=== PATIENT | male | born 1960 | race Caucasian/White ===

== ENCOUNTER → 2019-02-28 | Outpatient (CLI) | payer BC ==
--- NOTE | 2019-03-03 07:38 | PE ---
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 TECHNIQUE: Following the intravenous administration of 11.77 mCi of F-18 FDG, whole body images are performed from the skull base to the midthigh. Images are reviewed on the computer in the coronal, a xial, and sagittal planes. Reconstructed rotating images are created on independent workstation and reviewed on the computer. A noncontrast CT is performed in conjunction with the PET scan. Dedicated PET/CT imaging of the neck is acquired. SCAN: Initial Scan FINDINGS: SKULL BASE AND NECK: Primary tongue lesion not well visualized, asymmetric left sided soft tissue is noted axial image 49 with some hypermetabolic uptake just superior to this axial image 47 max SUV of 10.36. This likely is area of primary neoplasm. Near same level there is a hypermetabolic 1.8 x 1.1 cm lymph node anterior to carotid and jugular ves sels with max SUV of 12.69 on axial image 44. No additional areas of suspicious hypermetabolic uptake in the neck are identified. CHEST, MEDIASTINUM, AND HILAR REGION: No areas of suspicious hypermetabolic uptake. ABDOMEN AND PELVIS: No areas of suspicious hypermetabolic uptake. OSSEOUS STRUCTURES: No areas of suspicious hypermetabolic uptake. OTHER CT: Mild calcified plaque right carotid bulb. Dependent atelectasis bilateral lower lobes. Coronary artery calcification and/or stents are present. Left-sided parapelvic cysts. Yissel mesentery involving the left abdomen with some prominent but subce ntimeter lymph nodes. Correlate clinically. Incidental normal-appearing appendix in the right lower quadrant. Some diverticula in the sigmoid col on. Prostate gland upper limits of normal in size. IMPRESSION: Primary lesion left tongue base not well seen but felt identified. Adjacent left neck aimee nopathy noted. No metastatic malignancy is identified.
== END | disposition home or self-care (01) ==
LOC: RADPETMAIN 12:57
PROVIDERS: ATTEND Radiology Diagnostic Radiology
DX: R59.0 Localized enlarged lymph nodes (principal); C76.0 Malignant neoplasm of head, face and neck
CPT/HCPCS: 78815; A9552

== ENCOUNTER → 2019-08-08 | Outpatient (CLI) | payer BC ==
--- NOTE | 2019-08-13 15:27 | PE ---
Nuclear medicine PET/CT HISTORY: Head and neck carcinoma, subsequent Patient received 12.5 mCi F-18 intravenously in delayed scanning was performed from skull base to the mid thighs. Localization and attenuation correction CT scan was performed. Small [id number] image s obtained through the head and neck. Correlation to prior nuclear medicine PET/CT 02/28/2019 Head and neck: There is no suspicious hypermetabolic uptake. No evident supraclavicular adenopathy. T he previously identified left-sided adenopathy along the anterior cervical chain shows multiple surgi davis clips present. Fat planes are disrupted likely due to postop changes. No associated hypermetaboli c uptake. CHEST: There is no evident lung mass. No pleural or pericardial effusion. Coronary artery calcificati ons are present. No mediastinal, axillary, hilar adenopathy. There are coronary artery calcifications present. ABDOMEN: Probable parapelvic cysts within the kidneys. No adrenal or liver mass seen. No ascites. No pelvic adenopathy or free fluid. Urinary bladder unremarkable. Osseous structures show no associated hypermetabolic uptake. IMPRESSION: Postop changes. No suspicious hypermetabolic uptake.
== END | disposition home or self-care (01) ==
LOC: RADPETMAIN 10:36
PROVIDERS: ATTEND Radiology Diagnostic Radiology
DX: C76.0 Malignant neoplasm of head, face and neck (principal); Z98.890 Other specified postprocedural states
CPT/HCPCS: 78815; A9552

== ENCOUNTER → 2020-01-01 | Outpatient (CLI) | payer BC ==
[2020-01-01 12:57] LABS: Basophils % (A) 0 %; Eosinophils # (A) 0.1 k/uL (0-0.7); Eosinophils % (A) 2 %; HCT 41.3 % (39.0-53.0); HGB 13.8 gm/dL (13.0-17.5); Lymphocytes # (A) 0.6 k/uL (1.0-4.8); Lymphocytes % (A) 19 %; MCH 31.6 pg (25.0-35.0); MCHC 33.4 g/dL (31.0-37.0); MCV 94.7 fL (80.0-100.0); Mean Platelet Volume 7.4; Monocytes # (A) 0.3 k/uL (0-1.0); Monocytes % (A) 10 %; Neutrophils # (A) 2.2 k/uL (1.3-7.7); Neutrophils % (A) 66 %; Platelet Count 153 k/uL (150-450); RBC 4.36 m/uL (4.30-5.90); RDW 12.6 % (11.5-15.5); WBC 3.3 k/uL (3.8-10.6)
[2020-01-01 13:05] LABS: ALT 19 U/L (4-49); AST 21 U/L (17-59); African American GFR (CKD) >90 (>60 ml/min/1.73 sqM); Albumin 4.6 g/dL (3.5-5.0); Alkaline Phosphatase 46 U/L (38-126); Anion Gap 8 mmol/L; Blood Urea Nitrogen 10 mg/dL (9-20); Calcium 9.3 mg/dL (8.4-10.2); Carbon Dioxide 26 mmol/L (22-30); Chloride 106 mmol/L (98-107); Glucose 95 mg/dL (74-99); Non-African American GFR(CKD) >90 (>60 ml/min/1.73 sqM); Potassium 4.1 mmol/L (3.5-5.1); Sodium 140 mmol/L (137-145); Total Bilirubin 0.9 mg/dL (0.2-1.3); Total Protein 6.9 g/dL (6.3-8.2)
--- NOTE | 2020-01-01 13:08 | CT ---
EXAMINATION TYPE: CT neck chest w con DATE OF EXAM: 01/01/2020 12:52 PM COMPARISON: PET/CT 08/08/2019, PET/CT 02/28/2019 HISTORY: Follow up throat cancer. CT DLP: 1420 mGycm Automated exposure control for dose reduction was used. CONTRAST: CT scan of the neck is performed following with IV Contrast, patient injected with 100 mL of Isovue 3 00. Axial images are obtained, coronal and sagittal reformatted images are reviewed. FINDINGS: HEAD AND NECK: Extensive postsurgical check involving the left neck noted. Hypertrophic and degenerative change of the spine. Craniocervical junction demonstrates low-lying cer ebellar tonsils. Parotid glands are symmetric in appearance. Dental artifact results in a limited ass essment portions of the soft tissues of the neck due to severe artifact. There remains soft tissue fu llness in the region of the surgical bed is similar in appearance to the prior study and therefore gi bethany the absence of metabolic uptake felt to be postsurgical. Nasopharynx and oropharynx symmetric. Base of the tongue is symmetric. Vocal cords demonstrates sligh t asymmetry but may be related to artifact and patient motion correlate clinically. Left vocal cord s lightly more prominent than right. Clinical correlation suggested. This is similar in appearance to t he recent PET scan and therefore likely benign. No other areas of asymmetric fullness or pathologic adenopathy noted. Thyroid appears to be limited i n assessment due to artifact but grossly homogeneous. Mild atherosclerotic change of the carotid bifurcations. CHEST: Lungs are clear. No evidence of consolidation. No pleural effusion or pneumothorax. No sizable pulmonary nodule. Atherosclerotic change aorta. Coronary artery calcification noted. No pathologic adenopathy. Prominent parapelvic cyst is suspected in left renal hilum. IMPRESSION: 1. Asymmetric thickening involving the soft tissues of left neck in the region of the surgical change is stable from the recent PET scan. Given the soft tissue fullness was present on the previous PET s can and no abnormal metabolic uptake finding likely is postsurgical. No suspicious new adenopathy ger ntified. 2. No acute intrathoracic process. There is a 2 mm nodule in the right upper lobe axial image 38 to s mall too characterize. Retrospectively stable from both of the previous PET/CT and likely benign. 3. Coronary artery atherosclerotic disease. Correlate clinically.
== END | disposition home or self-care (01) ==
LOC: RADCTMAIN 12:08
PROVIDERS: ATTEND Internal Medicine Hematology & Oncology
DX: M79.89 Other specified soft tissue disorders (principal); R91.1 Solitary pulmonary nodule; I25.10 Atherosclerotic heart disease of native coronary artery without angina pectoris; C76.0 Malignant neoplasm of head, face and neck; Z98.890 Other specified postprocedural states
CPT/HCPCS: 80053; 85025; 70491; 71260; Q9967

== ENCOUNTER → 2020-05-10 | Outpatient (CLI) | payer BC ==
[2020-05-10 09:46] LABS: Basophils % (A) 1 %; Eosinophils % (A) 1 %; HCT 44.6 % (39.0-53.0); HGB 15.1 gm/dL (13.0-17.5); Lymphocytes # (A) 0.6 k/uL (1.0-4.8); Lymphocytes % (A) 17 %; MCH 32.1 pg (25.0-35.0); MCHC 33.9 g/dL (31.0-37.0); MCV 94.9 fL (80.0-100.0); Monocytes # (A) 0.4 k/uL (0-1.0); Monocytes % (A) 10 %; Neutrophils # (A) 2.5 k/uL (1.3-7.7); Neutrophils % (A) 70 %; Platelet Count 168 k/uL (150-450); RDW 12.5 % (11.5-15.5); WBC 3.6 k/uL (3.8-10.6)
[2020-05-10 09:55] LABS: ALT 37 U/L (4-49); AST 31 U/L (17-59); African American GFR (CKD) >90 (>60 ml/min/1.73 sqM); Albumin 4.7 g/dL (3.5-5.0); Alkaline Phosphatase 54 U/L (38-126); Anion Gap 5 mmol/L; Blood Urea Nitrogen 12 mg/dL (9-20); Calcium 9.3 mg/dL (8.4-10.2); Carbon Dioxide 32 mmol/L (22-30); Chloride 103 mmol/L (98-107); Glucose 86 mg/dL (74-99); Non-African American GFR(CKD) 80 (>60 ml/min/1.73 sqM); Potassium 4.1 mmol/L (3.5-5.1); Sodium 140 mmol/L (137-145); Total Bilirubin 0.6 mg/dL (0.2-1.3); Total Protein 7.3 g/dL (6.3-8.2)
--- NOTE | 2020-05-10 12:40 | CT ---
EXAMINATION TYPE: CT neck chest w con DATE OF EXAM: 05/10/2020 9:14 AM COMPARISON: CT neck and chest 01/01/2020 HISTORY: Head and neck cancer CT DLP: 1552 mGycm Automated exposure control for dose reduction was used. CONTRAST: CT scan of the neck and chest is performed following with IV Contrast, patient injected with 100 ml m L of Isovue 300. Axial images are obtained, coronal and sagittal reformatted images are reviewed. FINDINGS: There are coronary artery calcifications. Airway: No gross abnormality seen. Parotid/submandibular glands: No gross abnormality seen. Carotid/Vascular Structures: Unchanged Osseous Structures: Stable Other: Postop changes are noted along the left neck. Some inflammatory change noted in the left maxil alf sinus. The chest shows stable right lung nodules, no pleural or pericardial effusion. Groundglass focus is v ague and axial image 45 which is not seen definitively on prior exam. There is no mediastinal, axilla ry, or hilar adenopathy. IMPRESSION: There is an indeterminate groundglass density in the left lower lobe measuring only appr oximately 15 mm of questionable clinical significance, follow-up suggested.
== END | disposition home or self-care (01) ==
LOC: RADCTMAIN 08:32
PROVIDERS: ATTEND Internal Medicine Hematology & Oncology
DX: C76.0 Malignant neoplasm of head, face and neck (principal); I10 Essential (primary) hypertension; M12.9 Arthropathy, unspecified; Z71.3 Dietary counseling and surveillance
CPT/HCPCS: 80053; 85025; 70491; 71260; 36415; Q9967

== ENCOUNTER → 2020-06-10 | Outpatient (CLI) | payer BC ==
--- NOTE | 2020-06-10 13:59 | US ---
EXAMINATION TYPE: US carotid duplex BILAT DATE OF EXAM: 06/10/2020 COMPARISON: NONE CLINICAL HISTORY: R09.89 Carotid Bruit. Left carotid bruit; patient stated had left throat surgery la st year for CA with lymph nodes removed. EXAM MEASUREMENTS: RIGHT: Peak Systolic Velocity (PSV) cm/sec ----- Right CCA: 74.8 ----- Right ICA: 82.8 ----- Right ECA: 78.7 ICA/CCA ratio: 1.1 RIGHT: End Diastole cm/sec ----- Right CCA: 2.6 ----- Right ICA: 2.6 ----- Right ECA: 13.8 LEFT: Peak Systolic Velocity (PSV) cm/sec ----- Left CCA: 79.8 ----- Left ICA: 77.6 ----- Left ECA: 90.8 ICA/CCA ratio: 1.0 LEFT: End Diastole cm/sec ----- Left CCA: 22.6 ----- Left ICA: 17.1 ----- Left ECA: 23.7 VERTEBRALS (direction of flow): Right Vertebral: Antegrade Left Vertebral: Antegrade Rhythm: Arrhythmia noted proximal left CCA Irregular intimal wall changes noted right carotid bifurcation, and mild changes noted left carotid b ifurcation, but PSV is wnl bilaterally. IMPRESSION: 1. Irregular atherosclerotic plaque with no significant hemodynamic stenosis. 2. Cardiac dysrhythmia. Criteria for Assigning % of Stenosis / Diameter reduction (Estimation based on the indirect measurements of the internal carotid artery velocities (ICA PSV). 1. Normal (no stenosis)=ICA PSV < 125 cm/s: ratio < 2.0: ICA EDV<40 cm/s. 2. Less than 50% stenosis=ICA PSV < 125 cm/s: ratio < 2.0: ICA EDV<40 cm/s. 3. 50 to 69% stenosis=ICA PSV of 125 to 230 cm/s: ration 2.0 ? 4.0: ICA EDV 40-100 cm/s. 4. Greater than 70% stenosis to near occlusion= ICA PSV > 230 cm/s: ratio > 4.0: ICA EDV > 100 cm/s. 5. Near occlusion= ICA PSV velocities may be low or undetectable: variable ratio and ICA EDV. 6. Total occlusion=unable to detect flow.
== END | disposition home or self-care (01) ==
LOC: RADUSWWP 12:54
PROVIDERS: ATTEND Otolaryngology
DX: I65.23 Occlusion and stenosis of bilateral carotid arteries (principal)
CPT/HCPCS: 93880

== ENCOUNTER → 2020-09-26 | Outpatient (CLI) | payer BC ==
--- NOTE | 2020-09-26 12:04 | CT ---
EXAMINATION TYPE: CT neck chest w con DATE OF EXAM: 09/26/2020 COMPARISON: 05/10/2020 HISTORY: Follow up throat cancer CT DLP: 1589.7 mGycm CONTRAST: CT scan of the neck is performed with IV Contrast, patient injected with 100 mL of Isovue 300. Contrast enhanced CT of the neck was performed from the skull base through the lung apices. There is evidence of previous left-sided neck dissection. Overall the appearance is stable relative t o the prior examination. AIRWAY: The supraglottic, glottic, and subglottic portions of the airway appear patent and free of mass. SALIVARY GLANDS: The parotid glands are free of mass or inflammatory process. Nonvisualization of th e left submandibular gland normal-appearing right submandibular gland. THYROID GLAND: No nodules or masses seen. LYMPH NODES: No adenopathy seen greater than 1cm. LUNG APICES: No nodule or mass is seen. OTHER: Vascular structures are patent. No significant degenerative change of the cervical spine. N o abscess seen. IMPRESSION: Postoperative changes of left-sided neck dissection without definite evidence for mass. Overall appea basilio is stable relative to the prior study. EXAMINATION TYPE: CT neck chest w con DATE OF EXAM: 09/26/2020 COMPARISON: 05/10/2020 HISTORY: Follow up throat cancer CT DLP: 1589.7 mGycm Automated exposure control for dose reduction was used. CONTRAST: CT scan of the chest is performed with IV Contrast, patient injected with 100 mL of Isovue 300. FINDINGS: LUNGS: The lungs are grossly clear, there is no concerning parenchymal mass or nodule identified. The re is left lower lobe groundglass density has resolved. There is no pleural effusion or pneumothorax seen. The tracheobronchial tree is patent. MEDIASTINUM: There are no greater than 1 cm hilar or mediastinal lymph nodes. No pericardial effusi on is seen. Thoracic aorta is of normal caliber. The heart is not enlarged. UPPER ABDOMEN: No significant abnormality appreciated. OTHER: No additional significant abnormality is seen. IMPRESSION: No concerning pulmonary nodule is identified at this time.
== END | disposition home or self-care (01) ==
LOC: RADCTMAIN 10:51
PROVIDERS: ATTEND Internal Medicine Hematology & Oncology
DX: C14.0 Malignant neoplasm of pharynx, unspecified (principal)
CPT/HCPCS: 70491; 71260; Q9967

== ENCOUNTER → 2022-03-06 | Outpatient (CLI) | payer BC | END | disposition home or self-care (01) | LOC: LABWHC1 09:47 | PROVIDERS: ATTEND Radiology Radiation Oncology | DX: C61 Malignant neoplasm of prostate (principal) | CPT/HCPCS: 36415; 84153 ==

== ENCOUNTER → 2022-11-07 | Outpatient (CLI) | payer BC ==
[2022-11-07 15:09] LABS: Basophils # (A) 0.02 X 10*3/uL (0.00-0.10); Basophils % (A) 0.8 %; Eosinophils # (A) 0.03 X 10*3/uL (0.04-0.35); Eosinophils % (A) 1.1 %; HCT 39.8 % (39.6-50.0); HGB 13.5 g/dL (13.0-17.0); Immature Grans, Automated 0.4 %; Lymphocytes # (A) 0.57 X 10*3/uL (0.90-5.00); Lymphocytes % (A) 21.8 %; MCH 32.3 pg (27.0-32.0); MCHC 33.9 g/dL (32.0-37.0); MCV 95.2 fL (80.0-97.0); Mean Platelet Volume 9.5 fL (9.5-12.2); Monocytes # (A) 0.26 X 10*3/uL (0.20-1.00); NRBC Per 100 WBC 0 /100 WBCS (0.0-0.0); Neutrophils # (A) 1.72 X 10*3/uL (1.80-7.70); Neutrophils % (A) 65.9 %; Platelet Count 161 X 10*3/uL (140-440); RBC 4.18 X 10*6/uL (4.40-5.60); RDW 12.8 % (11.5-14.5); WBC 2.61 X 10*3/uL (4.50-10.00)
[2022-11-07 15:44] LABS: ALT 26 U/L (10-49); AST 24 U/L (14-35); African American GFR (CKD) 104.2 (60.0-200.0); Albumin 4.7 g/dL (3.8-4.9); Albumin/Globulin Ratio 1.81 (1.60-3.17); Alkaline Phosphatase 66 U/L (41-126); BUN/Creat Ratio 17.67 Ratio (12.00-20.00); Blood Urea Nitrogen 15.9 mg/dL (9.0-27.0); Calcium 9.9 mg/dL (8.7-10.3); Carbon Dioxide 28.5 mmol/L (20.0-27.5); Chloride 102 mmol/L (96-109); Globulin 2.6 g/dL (1.6-3.3); Glucose 108 mg/dL (70-110); LDL Cholesterol,Calculated 125.6 mg/dL (0.0-131.0); Non-African American GFR(CKD) 89.9 (60.0-200.0); Potassium 4.1 mmol/L (3.5-5.5); Sodium 140 mmol/L (135-145); Total Protein 7.3 g/dL (6.2-8.2)
== END | disposition home or self-care (01) ==
LOC: LABWHC1 09:21
PROVIDERS: ATTEND Family Medicine
DX: I10 Essential (primary) hypertension (principal)
CPT/HCPCS: 36415; 80053; 80061; 85025

== ENCOUNTER → 2022-11-22 | Outpatient (CLI) | payer BC ==
--- NOTE | 2022-11-22 14:50 | XR ---
EXAMINATION TYPE: XR chest special 4+ views DATE OF EXAM: 11/22/2022 COMPARISON: NONE TECHNIQUE: PA and lateral and bilateral oblique views are submitted. HISTORY: History of malignancy FINDINGS: The lungs are clear and there is no pneumothorax, pleural effusion, or focal pneumonia. Heart size normal and no overt failure. Osseous structures intact. Mild hyperinflation of lungs. Surgical change s in the soft tissues of the left IMPRESSION: 1. No acute process.
[2022-11-23 02:38] LABS: T4, Free (Free Thyroxine) 1.37 ng/dL (0.800-1.800)
== END | disposition home or self-care (01) ==
LOC: LABWHC1 12:51
PROVIDERS: ATTEND Otolaryngology
DX: E03.9 Hypothyroidism, unspecified (principal); Z85.810 Personal history of malignant neoplasm of tongue
CPT/HCPCS: 36415; 71048; 84439; 84443

== ENCOUNTER → 2023-11-14 | Outpatient (CLI) | payer MEDICARE ==
--- NOTE | 2023-11-14 16:11 | XR ---
EXAMINATION TYPE: XR hand limited RT DATE OF EXAM: 11/14/2023 3:15 PM CLINICAL INDICATION:Male, 63 years old with history of M79.641 PAIN IN RT HAND; [facility] COMPARISON: None TECHNIQUE: XR hand limited RT Frontal, lateral and oblique views were obtained. FINDINGS: Normal alignment of the visualized joints. No acute osseous pathology is identified. No e vidence of soft tissue swelling. Multifocal degeneration changes with joint space narrowing and osteo phyte formation. Remote injury to the distal pharynx of the fourth digit. Atherosclerosis of the julio rial vasculature. IMPRESSION: No acute osseous pathology. Mild multifocal degeneration changes throughout the joints of the hand.
== END | disposition home or self-care (01) ==
LOC: RADXRMAIN 15:02
PROVIDERS: ATTEND Family Medicine
DX: M19.041 Primary osteoarthritis, right hand (principal)

== ENCOUNTER → 2023-12-04 | Outpatient (CLI) | payer MEDICARE ==
[2023-12-04 18:05] LABS: Basophils # (A) 0.02 X 10*3/uL (0.00-0.10); Basophils % (A) 0.7 %; Eosinophils # (A) 0.06 X 10*3/uL (0.04-0.35); Eosinophils % (A) 2.1 %; HGB 13.2 g/dL (13.0-17.0); Immature Grans, Automated 0 %; Lymphocytes # (A) 0.58 X 10*3/uL (0.90-5.00); Lymphocytes % (A) 20.5 %; MCH 31.5 pg (27.0-32.0); MCHC 33.8 g/dL (32.0-37.0); MCV 93.1 FL (80.0-97.0); Mean Platelet Volume 9.9 FL (9.5-12.2); Monocytes # (A) 0.28 X 10*3/uL (0.20-1.00); Monocytes % (A) 9.9 %; NRBC Per 100 WBC 0 X 10*3/uL (0.00-0.01); Neutrophils # (A) 1.89 X 10*3/uL (1.80-7.70); Neutrophils % (A) 66.8 %; Platelet Count 179 X 10*3/uL (140-440); RBC 4.19 X 10*6/uL (4.40-5.60); RDW 12.8 % (11.5-14.5); WBC 2.83 X 10*3/uL (4.50-10.00)
[2023-12-04 18:41] LABS: ALT 23 U/L (10-49); AST 22 U/L (14-35); Albumin 4.7 g/dL (3.8-4.9); Albumin/Globulin Ratio 2.24 Ratio (1.60-3.17); Alkaline Phosphatase 61 U/L (41-126); Blood Urea Nitrogen 15.1 mg/dL (9.0-27.0); Calcium 9.5 mg/dL (8.7-10.3); Carbon Dioxide 24.3 mmol/L (21.6-31.8); Chloride 105 mmol/L (96-109); Globulin 2.1 g/dL (1.6-3.3); Glucose 108 mg/dL (70-110); Potassium 4.1 mmol/L (3.5-5.5); Sodium 142 mmol/L (135-145); Total Bilirubin 0.4 mg/dL (0.3-1.2); Total Protein 6.8 g/dL (6.2-8.2)
== END | disposition home or self-care (01) ==
LOC: LABWHC1 12:41
DX: C61 Malignant neoplasm of prostate (principal); R31.29 Other microscopic hematuria; R97.20 Elevated prostate specific antigen [PSA]
CPT/HCPCS: 36415; 80053; 84153; 84403; 85025

== ENCOUNTER → 2024-03-02 | Outpatient (CLI) | payer MEDICARE ==
[2024-03-02 15:30] LABS: Basophils # (A) 0.01 X 10*3/uL (0.00-0.10); Basophils % (A) 0.3 %; Eosinophils # (A) 0.03 X 10*3/uL (0.04-0.35); Eosinophils % (A) 0.8 %; HCT 45.7 % (39.6-50.0); HGB 15.2 g/dL (13.0-17.0); Immature Grans, Automated 0 %; Lymphocytes # (A) 0.63 X 10*3/uL (0.90-5.00); Lymphocytes % (A) 16.5 %; MCH 31.2 pg (27.0-32.0); MCHC 33.3 g/dL (32.0-37.0); MCV 93.8 FL (80.0-97.0); Mean Platelet Volume 9.9 FL (9.5-12.2); Monocytes % (A) 10.5 %; NRBC Per 100 WBC 0 X 10*3/uL (0.00-0.01); Neutrophils # (A) 2.75 X 10*3/uL (1.80-7.70); Neutrophils % (A) 71.9 %; Platelet Count 175 X 10*3/uL (140-440); RBC 4.87 X 10*6/uL (4.40-5.60); RDW 12.7 % (11.5-14.5); WBC 3.82 X 10*3/uL (4.50-10.00)
[2024-03-02 15:49] LABS: ALT 24 U/L (10-49); AST 24 U/L (14-35); Albumin 4.8 g/dL (3.8-4.9); Albumin/Globulin Ratio 2.18 Ratio (1.60-3.17); Alkaline Phosphatase 63 U/L (41-126); Blood Urea Nitrogen 11.7 mg/dL (9.0-27.0); Calcium 10.1 mg/dL (8.7-10.3); Carbon Dioxide 26.7 mmol/L (21.6-31.8); Chloride 103 mmol/L (96-109); Globulin 2.2 g/dL (1.6-3.3); Glucose 110 mg/dL (70-110); Potassium 4.3 mmol/L (3.5-5.5); Prostate Specific Antigen 0.07 ng/mL (0.000-4.500); Sodium 142 mmol/L (135-145); Total Bilirubin 0.5 mg/dL (0.3-1.2)
== END ==
LOC: LABWHC1 09:56
PROVIDERS: ATTEND Physician Assistant
DX: C61 Malignant neoplasm of prostate (principal); R31.29 Other microscopic hematuria; R97.20 Elevated prostate specific antigen [PSA]
CPT/HCPCS: 36415; 80053; 84153; 84403; 85025